=== PATIENT | male | born 1970 | race Two or more races ===

== ENCOUNTER 2024-02-29 22:20 | Emergency (ER) | payer MEDICARE, MEDICAID ==
[~2024-02-29] VITALS: Ht 185.4 cm; Wt 104.5 kg
[2024-02-29 22:29] VITALS: BP 109/65; PULSE 95; TEMP 98.5; O2SAT 99
[2024-03-01] MEDS: pantoprazole 40mg Tablet.DR PO SCH (01:05)
[2024-03-01] MEDS: spironolactone 50 MG tablet PO SCH (01:05)
[2024-03-01] MEDS: lactulose 20gm/30ml cup PO ONE (01:33)
[2024-03-01] MEDS: furosemide 20MG tablet PO ONE (01:33)
[2024-03-01] MEDS: HYDROcodone/acetaminophen 5mg/325mg tablet PO ONE (01:34)
[2024-03-01 01:35] VITALS: RESP 18
== END 2024-03-01 01:37 | disposition left against medical advice (07) ==
LOC: ER 22:20
DX: K72.90 Hepatic failure, unspecified without coma (principal); R18.8 Other ascites; Z88.5 Allergy status to narcotic agent
CPT/HCPCS: 99284

== ENCOUNTER 2024-03-08 23:52 | Emergency (ER) | payer MEDICARE, MEDICAID ==
[~2024-03-08] VITALS: Ht 185.4 cm; Wt 104.5 kg
[2024-03-09 01:21] VITALS: O2SAT 97
[2024-03-09 03:28] VITALS: BP 125/60; PULSE 69; RESP 18; TEMP 97.5
== END 2024-03-09 03:30 | disposition home or self-care (01) ==
LOC: ER 23:54
DX: K70.31 Alcoholic cirrhosis of liver with ascites (principal); R60.0 Localized edema; K72.10 Chronic hepatic failure without coma; I50.9 Heart failure, unspecified; Z88.5 Allergy status to narcotic agent
CPT/HCPCS: 99284